=== PATIENT | female | born 1950 | race Caucasian/White ===

== ENCOUNTER 2021-02-20 10:56 | Inpatient (IN) ==
[2021-02-20] MEDS ORDERED: Perflutren Lipid Microsphere 1.3 ML in 0.9 % Sodium Chloride 8.7 ML IVP PRN (13:49)
[2021-02-20 15:25] LABS: Chol/HDL Ratio 6.8 (0-4.9)
[2021-02-20 15:27] LABS: Troponin I < 0.03 ng/mL (< 0.04)
[2021-02-20 15:28] LABS: INR 1.1; Prothrombin Time 13.1 Seconds (9.4-12.1)
[2021-02-20 18:08] LABS: Thyroid Stimulating Hormone 3.372 mcIU/mL (0.340-5.600)
[2021-02-20] MEDS: Aspirin Enteric Coated 81 MG Tablet PO SCH (18:50)
[2021-02-21] MEDS ORDERED: *HR* Enoxaparin 40 MG/0.4 ML SYRINGE SQ SCH ×2 (06:00→14:00)
[2021-02-21 06:44] LABS: Hematocrit 39.5 % (35.3-44.9); Hemoglobin 13.6 g/dL (11.5-15.4); Mean Corpuscular HGB Conc 34.4 g/dL (31.6-35.5); Mean Corpuscular Hemoglobin 33.2 pg (28.0-33.3); Mean Corpuscular Volume 96.3 fL (83.0-100.0); Mean Platelet Volume 10.7 fL (9.4-12.4); Platelet Count 234 K/mcL (140-400); Red Cell Distribution Width 12.6 % (11.5-14.5); White Blood Count 9.4 K/mcL (4.3-11.1)
[2021-02-21 07:04] LABS: Estimated Average Glucose 117 mg/dl; Hemoglobin A1C 5.7 %
[2021-02-21 07:12] LABS: Alanine Aminotransferase 8 Units/L (7-52); Albumin 3.9 g/dL (3.5-5.7); Albumin/Globulin Ratio 1.3 (1.1-2.2); Alkaline Phosphatase 67 Units/L (34-104); Aspartate Amino Transferase 14 Units/L (13-39); BUN/Creatinine Ratio 20 (6-26); Bilirubin,Total 0.5 mg/dL (0.3-1.0); Blood Urea Nitrogen 15 mg/dL (8-23); Calcium 9.1 mg/dL (8.6-10.3); Carbon Dioxide 27 mEq/L (23-29); Chloride 102 mEq/L (98-107); Glucose 144 mg/dL (70-105); Osmolality,Calculated 287 (280-300); Potassium 3.7 mEq/L (3.5-5.1); Sodium 137 mEq/L (136-145); Total Protein 6.9 g/dL (6.4-8.9); eGFR For African Americans > 60 (> 60); eGFR For Non-African Americans > 60 (> 60)
[2021-02-21 07:15] LABS: Magnesium 1.9 mg/dL (1.6-2.6)
[2021-02-21] MEDS ORDERED: Aspirin Enteric Coated 81 MG Tablet PO SCH (09:00)
[2021-02-21] MEDS ORDERED: E-Z-HD (BARIUM SULF) SUSPENSION PO ONE (11:33)
[2021-02-21] MEDS ORDERED: E-Z-PAQUE (BARIUM SULF) SUSP 1 BOTTLE PO ONE (11:33)
[2021-02-21] MEDS: Aspirin Enteric Coated 81 MG Tablet PO SCH (12:14)
[2021-02-21] MEDS: NIFEdipine XL (24 HR) 60 MG TAB.ER.24 PO SCH (14:17)
[2021-02-21] MEDS: Nicotine 21 MG PATCH.TD24 TD SCH (17:41)
[2021-02-21] MEDS: lisinopriL 20 MG TABLET PO SCH (17:41)
[2021-02-21] MEDS: Nicotine 2 MG GUM BC SCH ×3 (17:42→22:22)
[2021-02-21 22:00] VITALS: TEMP 97.8
[2021-02-22] MEDS: Nicotine 2 MG GUM BC SCH ×2 (06:51→07:41)
[2021-02-22 07:21] LABS: Hematocrit 41.2 % (35.3-44.9); Hemoglobin 13.6 g/dL (11.5-15.4); Mean Corpuscular Volume 96.9 fL (83.0-100.0); Mean Platelet Volume 10.7 fL (9.4-12.4); Platelet Count 247 K/mcL (140-400); Red Blood Count 4.25 M/mcL (3.82-4.97); Red Cell Distribution Width 12.5 % (11.5-14.5); White Blood Count 7.6 K/mcL (4.3-11.1)
[2021-02-22 07:38] LABS: BUN/Creatinine Ratio 21 (6-26); Blood Urea Nitrogen 17 mg/dL (8-23); Calcium 9.3 mg/dL (8.6-10.3); Carbon Dioxide 28 mEq/L (23-29); Chloride 101 mEq/L (98-107); Glucose 120 mg/dL (70-105); Osmolality,Calculated 285 (280-300); Potassium 3.6 mEq/L (3.5-5.1); Sodium 136 mEq/L (136-145); eGFR For African Americans > 60 (> 60); eGFR For Non-African Americans > 60 (> 60)
[2021-02-22 07:39] LABS: Magnesium 1.9 mg/dL (1.6-2.6); Phosphorous 3.3 mg/dL (2.7-4.5)
[2021-02-22] MEDS: NIFEdipine XL (24 HR) 60 MG TAB.ER.24 PO SCH (07:39)
[2021-02-22] MEDS: lisinopriL 20 MG TABLET PO SCH (07:39)
[2021-02-22] MEDS: Aspirin Enteric Coated 81 MG Tablet PO SCH (07:39)
[2021-02-22] MEDS: Nicotine 21 MG PATCH.TD24 TD SCH (07:41)
[2021-02-22 07:53] VITALS: BP 161/71; PULSE 58; O2SAT 96
== END 2021-02-22 10:20 | disposition home or self-care (01) | DRG 65 ==
LOC: CDU → SUATTDRO 12:19
PROVIDERS: ADMIT Internal Medicine; ATTEND Internal Medicine

== ENCOUNTER 2022-03-16 11:40 | Observation (INO) ==
[2022-03-16 13:07] LABS: Basophils % 0.2 %; Hematocrit 35.7 % (35.3-44.9); Hemoglobin 12.1 g/dL (11.5-15.4); Immature Granulocytes % 0.5 % (0-4); Lymphocytes # 0.5 K/mcL (0.6-4.6); Lymphocytes % 8.3 %; Mean Corpuscular HGB Conc 33.9 g/dL (31.6-35.5); Mean Corpuscular Volume 91.5 fL (83.0-100.0); Mean Platelet Volume 10.6 fL (9.4-12.4); Monocytes # 0.4 K/mcL (0.0-1.3); Monocytes % 6.7 %; Neutrophils # 5.3 K/mcL (1.6-8.9); Platelet Count 222 K/mcL (140-400); Segmented Neutrophils % 84.3 %; White Blood Count 6.2 K/mcL (4.3-11.1)
[2022-03-16 13:22] LABS: Calcium 8.6 mg/dL (8.6-10.3); Potassium 3.7 mEq/L (3.5-5.1)
[2022-03-16] MEDS ORDERED: Ondansetron 4 MG/2 ML VIAL IVP ONE (14:03)
[2022-03-16] MEDS ORDERED: Naloxone 0.4 MG/ML INJ IVP PRN (14:56)
[2022-03-16] MEDS ORDERED: Ondansetron 4 MG/2 ML VIAL IVP PRN (14:56)
[2022-03-16] MEDS ORDERED: Acetaminophen 325 MG TABLET PO PRN (14:56)
[2022-03-16] MEDS: 0.9 % Sodium Chloride 1,000 ML IVC SCH (16:45)
[2022-03-16] MEDS: *HR* Heparin 5,000 UNIT/ML VIAL SQ SCH (17:43)
[2022-03-16] MEDS ORDERED: Melatonin 3 MG TABLET PO PRN (21:00)
[2022-03-16] MEDS ORDERED: *HR* Labetalol 20 MG/4 ML SYRINGE IVP ONE (23:13)
[2022-03-17 05:00] LABS: Calcium 8.1 mg/dL (8.6-10.3); Potassium 3.9 mEq/L (3.5-5.1)
[2022-03-17] MEDS: 0.9 % Sodium Chloride 1,000 ML IVC SCH ×2 (06:32→12:42)
[2022-03-17] MEDS: *HR* Heparin 5,000 UNIT/ML VIAL SQ SCH ×2 (06:34→17:57)
[2022-03-17] MEDS: lisinopriL 20 MG TABLET PO SCH (10:00)
[2022-03-17] MEDS: Nicotine 21 MG PATCH.TD24 TD SCH (10:00)
[2022-03-17] MEDS: Aspirin Enteric Coated 81 MG Tablet PO SCH (10:00)
[2022-03-17 18:31] LABS: Bacteria,Urine Few per hpf (None-Few); Bilirubin,Urine Negative (Negative); Blood,Urine Large (Negative); Clarity,Urine Turbid (Clear); Color,Urine Light-Yellow (Yellow); Glucose,Urine (UA) Normal (Normal); Ketones,Urine Negative (Negative); Leukocyte Esterase,Urine Large (Negative); Nitrite,Urine Positive (Negative); Protein,Urine 70 mg/dL (Neg-Trace); Specific Gravity,Urine 1.009 (1.010-1.025); Urobilinogen,Urine Normal (Normal); WBC,Urine TNTC per hpf (0-3)
[2022-03-18 03:36] VITALS: TEMP 98
[2022-03-18 05:06] VITALS: O2SAT 94
[2022-03-18] MEDS: *HR* Heparin 5,000 UNIT/ML VIAL SQ SCH (05:07)
[2022-03-18 08:13] VITALS: BP 168/74; PULSE 59
[2022-03-18] MEDS ORDERED: hydrALAZINE 25 MG TABLET PO SCH ×2 (09:00)
[2022-03-18] MEDS: Aspirin Enteric Coated 81 MG Tablet PO SCH (10:10)
[2022-03-18] MEDS: lisinopriL 20 MG TABLET PO SCH (10:11)
[2022-03-18] MEDS: Nicotine 21 MG PATCH.TD24 TD SCH (10:11)
[2022-03-18] MEDS ORDERED: Moderna Covid-19 Vaccine 100MCG/0.5mL IM ONE (11:17)
== END 2022-03-18 12:45 | disposition home or self-care (01) ==
LOC: 3ANU 11:40 → EMEROOARM 11:40 → SUATTDRO 14:43 → 3ANU 15:54
PROVIDERS: ADMIT Internal Medicine; ATTEND Nurse Practitioner